=== PATIENT | male | born 1940 | race Caucasian/White ===

== ENCOUNTER 2016-03-18 16:58 | Emergency (ER) | payer OTHER ==
[~2016-03-18] VITALS: Ht 175.3 cm; Wt 143.1 kg
[~2016-03-18 16:58] MED LIST: ADULT LOW DOSE81 M1 PO; ALBUTEROL SULF8.5 GM IH; ALLERGY RELIEF10 M1 PO; ASCORBIC ACID500 M3 PO; ASPIRIN325 MG PO; ASPIRIN81 M2 PO; AUGMENTIN875 MG PO; BENADRYL25 MG PO; BISACODYL SUPP10 MG PR; BISACODYL5 MG PO; CATAPRES0.3 MG PO; CELEBREX200 MG PO; CLARITIN10 M3 PO; CLARITIN10 MG PO; CLEOCIN300 MG PO; CLONIDINE HCL0.2 MG PO; COLACE100 MG PO; COMPAZINE25 M1 PR; COUMADIN,JANTOVE2 MG PO; COUMADIN1 MG PO; COUMADIN2 MG PO; COUMADIN3 MG PO; COUMADIN4 MG PO; COUMADIN5 MG PO; COUMADIN6 MG PO; COZAAR100 MG PO; Colace PO; Cozaar PO; Ecotrin PO; FEOSOL325 MG PO; FERROUS SULFAT325 MG PO; FLORASTOR250 MG PO; FLUOXETINE HCL20 MG PO; FOLIC ACID1 MG PO; Feosol PO; GLUCOVANCE 51 TABLET PO; GLYBURID-METFO1 EAC3 PO; Glucophage PO; HYDROCODON-ACE1 EAC7 PO; HYTRIN5 MG PO; Hytrin PO; IRON325 MG PO; K-Dur PO; KLOR-CON M2020 MEQ PO; LANTUS 10100 UNITS/ SC; LANTUS 3 M100 UNITS/ SC; LANTUS 3 M100 UNITS1 SC; LANTUS100 UNIT/1 SQ; LASIX40 MG PO; LEVAQUIN750 MG PO; LISINOPRIL20 MG PO; LOSARTAN POTAS100 MG PO; MILK OF MAGNESI10 ML PO; NEURONTIN300 MG PO; NORVASC10 MG PO; OXYCODONE HCL10 MG PO; OXYCODONE HCL5 MG PO; PRAVACHOL80 MG PO; PRAVASTATIN SOD80 MG PO; PREDNISONE20 MG PO; PRINIVIL20 MG PO; PROZAC20 MG PO; PROzac PO; Pen-Vee K,Veetids PO; PriLOSEC PO; Proventil,Ventolin H IH; ROBITUSSIN AC,T10 ML PO; ROXICODONE5 MG PO; SENNA S TABLET1 EACH PO; SENNA-TIME S T1 EACH PO; SPIRONOLACTONE50 MG PO; STOOL SOFTENER100 MG PO; TERAZOSIN HCL5 MG PO; TYLENOL EXTRA500 MG PO; Tenormin PO; VENTOLIN HFA18 GM IH; VITAMIN C500 M1 PO; VITAMIN D1000 INTUN PO; VITAMIN D1000 UNIT PO; VITAMIN D31000 UNIT PO; ZANAFLEX2 M1 PO; ZESTRIL20 MG PO; ZYVOX600 MG PO; Zestril,Prinivil PO
[2016-03-18] MEDS ORDERED: ZITHROMAX Z-PA250 MG PO (18:43)
[2016-03-18] MEDS ORDERED: MOTRIN600 MG PO (18:43)
[2016-03-18 18:49] VITALS: BP 169/92
== END 2016-03-18 19:15 | disposition home or self-care (01) ==
LOC: EME 16:58
DX: R07.89 Other chest pain (principal); J40 Bronchitis, not specified as acute or chronic; J45.909 Unspecified asthma, uncomplicated; E11.9 Type 2 diabetes mellitus without complications; I10 Essential (primary) hypertension; K21.9 Gastro-esophageal reflux disease without esophagitis; Z87.442 Personal history of urinary calculi; Z86.73 Personal history of transient ischemic attack (TIA), and cerebral infarction without residual deficits; Z96.651 Presence of right artificial knee joint; Z79.01 Long term (current) use of anticoagulants; Z79.4 Long term (current) use of insulin
CPT/HCPCS: 71020; 80048; 84484; 85027; 93005; 99281; 99285

== ENCOUNTER 2016-09-09 12:48 | Emergency (ER) | payer OTHER ==
[~2016-09-09] VITALS: Ht 185.4 cm; Wt 136.6 kg
[~2016-09-09 12:48] MED LIST changes: +MOTRIN600 MG PO; +ZITHROMAX Z-PA250 MG PO
[2016-09-09 14:54] LABS: EOSINOPHIL (%) 2.1 % (0-5); EOSINOPHIL COUNT 0.2 K/uL (0-0.3); IMMATURE GRANULOCYTE (%) 0.4 % (0.0-0.7); INSTRUMENT ABS NEUTROPHIL CT 7.4 K/uL; LYMPHOCYTE COUNT 0.9 K/uL (1.0-2.8); MCH 30.4 PG (29.0-34.0); MCHC 34.2 G/DL (30.0-36.0); MCV 88.9 FL (86-99); MEAN PLAT.VOLUME 8.9 uM^3 (9.0-12.4); MONOCYTE (%) 6.6 % (3-12); MONOCYTE COUNT 0.6 K/uL (0-0.8); NEUTROPHIL COUNT 7.4 K/uL (1.8-6.4); PLATELET COUNT 218 K/uL (156-360); RBC DIS.WIDTH-CV 13.8 % (11.8-14.6); RBC DIS.WIDTH-SD 44.7 % (39-53); RED BLOOD COUNT 5.06 M/uL (4.00-5.50); WHITE BLOOD COUNT 9.1 K/uL (4.1-10.2)
[2016-09-09 15:02] LABS: CHLORIDE 98 mEq/L (99-109); POTASSIUM 3.6 mEq/L (3.7-5.4); SODIUM 138 mEq/L (136-147)
[2016-09-09 15:03] LABS: GLUCOSE 149 mg/dL (70-99)
[2016-09-09 15:05] LABS: ANION GAP 11 MEQ/L (2-14)
[2016-09-09 15:06] LABS: INTER. NORMALIZED RATIO 2.4; PROTHROMBIN TIME 24.8 (9.2-11.2)
[2016-09-09 15:07] LABS: GFR ESTIMATE (CALCULATED) > 59 mL/min/
[2016-09-09 15:08] LABS: UREA NITROGEN (BUN) 14 mg/dL (9-23)
[2016-09-09] MEDS ORDERED: PERCOCET 5/31 TABLET PO (16:28)
[2016-09-09 17:15] VITALS: BP 148/70
== END 2016-09-09 18:33 | disposition home or self-care (01) ==
LOC: EME → EDBD 12:48 → EME 14:16
PROVIDERS: Emergency Medicine
DX: S40.012A Contusion of left shoulder, initial encounter (principal); S09.90XA Unspecified injury of head, initial encounter; S60.418A Abrasion of other finger, initial encounter; W18.39XA Other fall on same level, initial encounter; E11.9 Type 2 diabetes mellitus without complications; Z79.4 Long term (current) use of insulin; I10 Essential (primary) hypertension; K21.9 Gastro-esophageal reflux disease without esophagitis; Z86.73 Personal history of transient ischemic attack (TIA), and cerebral infarction without residual deficits; J45.909 Unspecified asthma, uncomplicated; Z87.891 Personal history of nicotine dependence
CPT/HCPCS: 70450; 71010; 73030; 80048; 85025; 85610; 93005; 99281; 99285